=== PATIENT | male | born 1970 | race Caucasian/White ===

== ENCOUNTER 2018-09-11 17:24 | Inpatient (IN) | payer OTHER, SELFPAY ==
[~2018-09-11 17:24] MED LIST: ISOVUE-370 76%-LOCM 1 ML ONE; Iopamidol 370 76% 50 ML VIAL FS ONE
[2018-09-11 18:50] LABS: #Basophils 0.1 thou/uL (0.0-0.2); #Eosinphils 0.2 thou/uL (0.0-0.7); #Lymphocytes 2.3 thou/uL (1.20-3.40); #Monocytes 0.6 thou/uL (0.11-0.59); #Neutrophils 7.9 thou/uL (1.40-6.50); %Basophils 0.8 % (0.0-1.0); %Eosinophils 1.6 % (0.0-10.0); %Lymphocytes 20.6 % (21.0-51.0); %Monocytes 5.6 % (0.0-10.0); %Neutrophils 71.4 % (42.0-75.0); Hemoglobin 15.8 g/dL (14.0-18.0); Mean Corpuscular HGB CONC 32.6 g/dL (32.0-36.0); Mean Corpuscular Hemoglobin 29.4 pg (27.0-31.0); Mean Corpuscular Volume 90.1 fL (78.0-98.0); Mean Platelet Volume 6.8 fL (7.4-10.4); Platelet Count 352 thou/uL (130-400); RBC Distribution Width 11.9 % (11.5-14.5)
[2018-09-11 19:26] LABS: ALT (SGPT) 15 U/L (8-55); AST (SGOT) 13 U/L (5-34); Albumin 4.3 g/dL (3.5-5.0); Alkaline Phosphatase 69 U/L (40-150); Anion Gap 12 mmol/L (10-20); BUN (Urea Nitrogen) 19 mg/dL (8.9-20.6); Bilirubin, Total 0.6 mg/dL (0.2-1.2); Calc. Creatinine Clearance 0 mL/min (70-130); Calcium 9.8 mg/dL (7.8-10.44); Carbon Dioxide 27 mmol/L (22-29); Chloride 106 mmol/L (98-107); Estimated GFR-MDRD Greater than 90; Globulin 2.7 g/dL (2.4-3.5); Glucose 90 mg/dL (70-105); Sodium 141 mmol/L (136-145)
[2018-09-11 20:42] LABS: Bilirubin Negative (Negative); Blood, Urine Small (Negative); Glucose, Urine (Dipstick) Negative (Negative); Leukocyte Moderate (Negative); Nitrite Positive (Negative); Protein, Urine (Dipstick) 30 mg/dL (Neg-Trace); Urobilinogen 0.2 mg/dL (Less than 2)
[2018-09-11 20:46] LABS: Clarity Cloudy (Clear)
[2018-09-11 20:57] LABS: Bacteria/HPF 4+ HPF (None Seen); Squamous Epithelial 0-3 HPF (0-3); WBC/HPF Greater Than 50 HPF (0-3)
--- NOTE | 2018-09-11 22:08 | CT ---
EXAM: CT Abdomen Pelvis W Con PROVIDED CLINICAL HISTORY: Abdominal pain COMPARISON: None FINDINGS: Visualized lung bases are free of significant opacity. Exophytic right renal cysts and hypodensities too small to characterize involving left kidney. Multip le 1-2 mm nonobstructing right renal calculi. The solid abdominal organs demonstrate an otherwise unremarkable CT appearance. There is a small midline ventral hernia at about the level of the caudal margin of the right liver. There is prominent mural thickening involving the sigmoid colon. This mural thickening closely approx imates the urinary bladder dome which also appears thickened. There is a focal area of gas density extending from the sigmoid colon in this region to the urinary bladder. Gas is noted within the urina ry bladder. There is a large left inguinal hernia containing the distal descending and proximal sigmoid colon. Th ere is also fluid density within the hernia sac. There is no evidence for bowel obstruction or pneumoperitoneum. There is no evidence for appendicitis . The osseous structures demonstrate no concerning lytic or blastic lesions. IMPRESSION: 1. Conspicuous mural thickening involving the sigmoid colon compatible with inflammatory change such as diverticulitis or colitis, with associated colovesical fistula. 2. Large colon containing left inguinal hernia with associated fluid density within the hernia sac. C orrelate for incarceration. 3. Nonobstructing right renal calculi.
[2018-09-11] MEDS ORDERED: Levofloxacin 500 mg/D5W 100 ml Premix Bag ONE ×2 (22:44→22:48)
[2018-09-11] MEDS ORDERED: metroNIDAZOLE 500 MG/100 ML BAG ONE (22:44)
[2018-09-11] MEDS ORDERED: Ondansetron PF 4 MG/2 ML Vial IVP PRN (23:19)
--- NOTE | 2018-09-11 23:19 | PDOC.FPRHP ---
- History of Present Illness Chief Complaint: abdominal pain History of Present Illness: Patient is a 48 yo male presenting with a 2 month history of lower abdominal pain. He states that the pain occurs the most after eating and when he is moving around. He describes the pain as throbbing, aching, and a sharp pain in his pelvis near his penis. He has tried IBP and tylenol for the pain and states that these don't work. He also states that he has been nauseous and vomiting almost every morning after he wakes up. He denies any hematemesis. He reports that lately his stool has been "broken and thin" but denies hematochezia or melena. He also states that his stool often has mucus in it and is greasy in appearance. He endorses often feeling pain with wiping after defecation. He also complains of seeing bubbles in his urine, with a sensation of "gargling toward the end" of urination. He denies hematuria or dysuria. He has been seen at [facility] for these complaints, for which they recommended that he get his L inguinal hernia repaired. ED Course: Patient was evaluated and had a CT of the abdomen/pelvis. The CT was concerning for: 1. Conspicuous mural thickening involving the sigmoid colon compatible with inflammatory change such as diverticulitis or colitis, with associated colovesical fistula. 2. Large colon containing left inguinal hernia with associated fluid density within the hernia sac. C orrelate for incarceration. 3. Nonobstructing right renal calculi. A UA showed moderate leukocytes, positive nitrites, and a small amount of blood. CBC was remarkable for WBC of 11.0 with elevated neutrophils and monocytes. CMP was unremarkable. Patient was started on 500mg IV Flagyl and 500mg IV Levaquin Patient was admitted for primary diagnosis of diverticulitis complicated by colovesicular fistula. - Allergies/Adverse Reactions Allergies Allergy/AdvReac Type Severity Reaction Status Date / Time No Known Drug Allergies Allergy Verified 09/12/18 01:54 - History PMHx: R & L inguinal hernia, R hernia repaired Diverticulitis Colitis Anxiety/Depression for which he used to take Seroquel & Buspar. PSHx: R hernia repair FHx: none Social: ETOH: occasional Drugs: Current Marijuana use, past cocaine addiction 10 years ago, denies current use Smoking: Current smoker, 1ppd - Review of Systems General: reports: weight/appetite/sleep changes (Decreased eating because it causes him pain) Eyes: denies: vision changes ENT: reports: rhinorrhea Respiratory: reports: cough (mild). denies: shortness of breath Cardiovascular: denies: chest pain, palpitation Gastrointestinal: reports: nausea, vomiting, diarrhea ("broken and thin" stools) , abdominal pain (lower abdomen). denies: constipation Genitourinary: denies: incontinence, dysuria Skin: denies: rashes Musculoskeletal: denies: pain - Vital signs BP: [130/84] HR: [80] RR: [16] Tmax: [98.1] Pox: [98]% on [RA] Wt: [81.65kg] - Physical Exam Constitutional: NAD, awake, alert and oriented, well developed HEENT: normocephalic and atraumatic, PERRLA, EOMI Chest: no-tender to palpation Heart: RRR, normal S1/S2, no murmurs/rubs/gallops, pulses present, no edema Lungs: CTAB, no respiratory distress, good air movement, no rales/rhonchi, no wheezing, no retractions Abdomen: soft, bowel sounds present, no masses/distention, other (tender to palpation in lower quadrants, small umbilical hernia) Musculoskeletal: normal structure Neurological: no focal deficit Skin: no rash/lesions Psychiatric: normal mood and affect Additional comment: Reducable, non-strangulated, L inguinal hernia FMR H&P: Results - Labs Result Diagrams: 09/12/18 04:27 09/12/18 04:27 Lab results: WBC 11.0 thou/uL (4.8-10.8) H 09/11/18 18:37 Hgb 15.8 g/dL (14.0-18.0) 09/11/18 18:37 Hct 48.6 % (42.0-52.0) 09/11/18 18:37 MCV 90.1 fL (78.0-98.0) 09/11/18 18:37 Plt Count 352 thou/uL (130-400) 09/11/18 18:37 Neutrophils % 71.4 % (42.0-75.0) 09/11/18 18:37 Sodium 141 mmol/L (136-145) 09/11/18 18:37 Potassium 4.0 mmol/L (3.5-5.1) 09/11/18 18:37 Chloride 106 mmol/L (98-107) 09/11/18 18:37 Carbon Dioxide 27 mmol/L (22-29) 09/11/18 18:37 BUN 19 mg/dL (8.9-20.6) 09/11/18 18:37 Creatinine 0.83 mg/dL (0.7-1.3) 09/11/18 18:37 Glucose 90 mg/dL (70-105) 09/11/18 18:37 Calcium 9.8 mg/dL (7.8-10.44) 09/11/18 18:37 Total Bilirubin 0.6 mg/dL (0.2-1.2) 09/11/18 18:37 AST 13 U/L (5-34) 09/11/18 18:37 ALT 15 U/L (8-55) 09/11/18 18:37 Alkaline Phosphatase 69 U/L (40-150) 09/11/18 18:37 Serum Total Protein 7.0 g/dL (6.0-8.3) 09/11/18 18:37 Albumin 4.3 g/dL (3.5-5.0) 09/11/18 18:37 Urine Ketones Negative mg/dL (Negative) 09/11/18 20:25 Urine Blood Small (Negative) A 09/11/18 20:25 Urine Nitrite Positive (Negative) A 09/11/18 20:25 Ur Leukocyte Esterase Moderate (Negative) H 09/11/18 20:25 Urine RBC 7-10 HPF (0-3) A 09/11/18 20:25 Urine WBC Greater Than 50 HPF (0-3) A 09/11/18 20:25 Ur Squamous Epith Cells 0-3 HPF (0-3) 09/11/18 20:25 Urine Bacteria 4+ HPF (None Seen) A 09/11/18 20:25 - Radiology Interpretation CT scan - abdomen Status: report reviewed by me (1. Conspicuous mural thickening involving the sigmoid colon compatible with inflammatory change such as diverticulitis or colitis, with associated colovesical fistula. 2. Large colon containing left inguinal hernia with associated fluid density within the hernia sac. Correlate for incarceration. 3. Nonobstructing right renal calculi.) FMR H&P: A/P - Problem List (1) Diverticulitis large intestine Current Visit: Yes Status: Acute Code(s): K57.32 - DVTRCLI OF LG INT W/O PERFORATION OR ABSCESS W/O BLEEDING (2) Colovesical fistula Current Visit: Yes Status: Acute Code(s): N32.1 - VESICOINTESTINAL FISTULA (3) UTI (urinary tract infection) Current Visit: Yes Status: Acute (4) Leukocytosis Current Visit: Yes Status: Acute Code(s): D72.829 - ELEVATED WHITE BLOOD CELL COUNT, UNSPECIFIED (5) Left inguinal hernia Current Visit: Yes Status: Acute Code(s): K40.90 - UNIL INGUINAL HERNIA, W/ O OBST OR GANGR, NOT SPCF RECUR (6) Drug abuse Current Visit: Yes Status: Acute Code(s): F19.10 - OTHER PSYCHOACTIVE SUBSTANCE ABUSE, UNCOMPLICATED - Plan Diverticulitis vs colitis -CT abdomen demonstrated conspicuous mural thickening involving the sigmoid colon compatible with inflammatory change such as diverticulitis vs colitis -patient started on IV flagyl and IV levaquin in ED, continue -NPO -IVF -Pain control: IV morphine PRN -Consult GI -FOBT -Stool studies -ESR Colovesical fistula -CT abdomen demonstrated colovesical fistula -patient reports of air coming out of penis during urination, denies dysuria or hematuria -Consult surgery in AM, appreciate recs -Consult urology pending recs by sx UTI -UA showed leukocytes, nitrites, small blood -Already started flagyl and levaquin in ED, continue -Urine culture pending Leukocytosis -WBC 11.0 -Likely 2/2 diverticulitis, colovesical fistula, and UTI -On abx -Blood cx -0/4 SIRS criteria -Will monitor L inguinal hernia -CT pelvis demonstrated large colon containing left inguinal hernia with associated fluid density within the hernia sac -Hernia is reducible, non-strangulated, and non-tender to palpation on physical exam -Consult surgery Drug Abuse -UDS positive for THC, methamphetamine, amphetamine -will monitor for signs of withdrawal Fluids: NS 150ml/hr Code status: full PPx: SCD Disposition/LOS: Dispo: pending surgery evaluation in am FMR H&P: Upper Level - Plan Date/Time: 09/11/18 2313 HPI: This is a 48 yo M who comes in for pain he attributes to his hernia. He gets a sharp pain in his groin when he moves in certain positions at work which led him to come into the ED tonight. He had a hernia repair on the R previously and he said the pain is similar. At time of exam he states his pain is minimal but were he to get up and walk around his pain would be worse. Patient also has a separate abdominal pain described as a throbbing in the LUQ and LLQ which is worse with eating. He states he has had multiple bouts of diarrhea which come and go in the past but never bloody. He states his BMs are often full of mucous and are sometimes stringy or decreased in caliber. He denies fevers, chills, or sweats. He denies N/V. Patient states he has had many bouts of diverticulitis. He states that for the last 2 days he has noticed gas in his urine. Towards the end of finishing urinating he notices bubbles coming out. This was concerning to him but not his main reason for coming in. He denies burning or blood with urination although he was told he had microscopic hematuria at a recent visit to [facility] ED. REVIEW OF SYSTEMS: Gen: no fever, chills, or sweats Neuro: no numbness/tingling, no weakness, denies headache Eyes: no visual changes ENT: no hearing changes, no sore throat, + nasal congestion Resp: no cough, no SOB, no wheeze Card: denies chest pain, no palpitations GI: see hpi : no dysuria, no hematuria MSK: no myalgias, no joint pain/stiffness Heme: no easy bruising/bleeding, no blood thinners Skin: no rash, no erythema PHYSICAL EXAMINATION: General: NAD, alert and oriented x3 HEENT: PERRLA, EOMI, normal sclera, oropharynx without erythema or exudate Neck: Supple. Full ROM. Heart/Cardiovascular System: RRR, Cap refill < 3 seconds, no rub, no murmur Lungs/Respiratory System: clear to auscultation bilaterally. No increased work of breathing. Room air. Abdomen/Gastro-Intestinal System: large non-reducible inguinal hernia, non- tender to palpation, no redness or erythema, no warmth to touch, umbilical hernia noted, normal bowel sounds throught, soft non-tender throughout Extremities: Warm extremities. No cyanosis or edema. Neuro: No gross deficits appreciated. CN 2-12 grossly intact Psychiatry: Awake, Alert and cooperative with exam Skin: No lesions, rashes, or ulcers Musculoskeletal: Full ROM A/P: # Colitis - levofloxacin, flagyl, blood culture - ESR 8, WBC 11, FOBT negative, fecal lactoferrin pending # Colovesical fistula, inguinal hernia - consult surgery in AM, may ultimately need urological consult as well - Will need repair of hernia, fistula -- this is likely 2/2 diverticulitis but IBD is a consideration - morphine for pain control # Drug abuse - stated he had not used cocaine for 5-10 years - + THC and Amphetamines # UTI - 2/2 fistula, as above - ucx Fluids: NS 150ml/hr Code status: full PPx: SCD Dispo: pending surgical eval Addendum - Attending - Attending Attestation Date/Time: 09/12/18 1044 I personally evaluated the patient and discussed the management with Dr. Choi and team. I agree with the History, Examination, Assessment and Plan documented above with any addition or exceptions noted below. Colovesical fistula in setting of diverticulitis/osis with large left inguinal hernia -antibiotics -GS consultation in AM
[2018-09-11] MEDS ORDERED: Morphine 4 MG/ML VIAL SLOW IVP PRN (23:24)
[2018-09-11 23:54] LABS: Amphetamine Detected (NotDetected); Barbiturates Screen Not Detected (NotDetected); Benzodiazepine Screen Not Detected (NotDetected); Cocaine Metabolite Screen Not Detected (NotDetected); Medtox Control Line Valid? VALID (VALID); Medtox Reader # READER 4; Methadone Not Detected (NotDetected); Methamphetamine Detected (NotDetected); Opiate Screen Not Detected (NotDetected); Oxycodone Screen Not Detected (NotDetected); Phencyclidine (PCP) Not Detected (NotDetected); THC/Cannabinoid Screen Detected (NotDetected); Tricyclic Screen Not Detected (NotDetected)
[2018-09-12] MEDS: Sodium Chloride 0.9% 1,000 ML IV SCH ×2 (02:00→08:20)
[2018-09-12 02:28] VITALS: BMI 25.8
[2018-09-12 04:55] LABS: #Basophils 0.1 thou/uL (0.0-0.2); #Eosinphils 0.2 thou/uL (0.0-0.7); #Lymphocytes 2.8 thou/uL (1.20-3.40); #Monocytes 0.8 thou/uL (0.11-0.59); #Neutrophils 4.8 thou/uL (1.40-6.50); %Basophils 0.8 % (0.0-1.0); %Eosinophils 2.9 % (0.0-10.0); %Lymphocytes 32.6 % (21.0-51.0); %Monocytes 8.8 % (0.0-10.0); Hemoglobin 13.7 g/dL (14.0-18.0); Mean Corpuscular Hemoglobin 29.7 pg (27.0-31.0); Mean Corpuscular Volume 90.1 fL (78.0-98.0); Platelet Count 294 thou/uL (130-400); RBC Distribution Width 11.8 % (11.5-14.5); White Blood Cell (WBC) Count 8.7 thou/uL (4.8-10.8)
[2018-09-12 05:20] LABS: ALT (SGPT) 9 U/L (8-55); AST (SGOT) 9 U/L (5-34); Albumin 3.5 g/dL (3.5-5.0); Alkaline Phosphatase 55 U/L (40-150); Anion Gap 6 mmol/L (10-20); BUN (Urea Nitrogen) 12 mg/dL (8.9-20.6); Bilirubin, Total 0.5 mg/dL (0.2-1.2); Calc. Creatinine Clearance 130 mL/min (70-130); Calcium 8.8 mg/dL (7.8-10.44); Carbon Dioxide 28 mmol/L (22-29); Chloride 108 mmol/L (98-107); Estimated GFR-MDRD Greater than 90; Globulin 2.2 g/dL (2.4-3.5); Glucose 88 mg/dL (70-105); Potassium 3.3 mmol/L (3.5-5.1); Protein, Total 5.7 g/dL (6.0-8.3); Sodium 139 mmol/L (136-145)
[2018-09-12] MEDS ORDERED: metroNIDAZOLE 500 MG in Premix Bag 1 BAG IVPB SCH (06:00)
--- NOTE | 2018-09-12 07:39 | PDOC.FM ---
- Subjective Subjective: Pt reports improved abdominal pain overnight. He states the pain is worse with standing and large meals. He denies chest pain, SOB, or headaches. - Objective MAR Reviewed: Yes Vital Signs & Weight: Vital Signs (12 hours) Temp Pulse Resp BP Pulse Ox 09/12/18 03:58 98.2 F 60 20 139/71 96 09/12/18 02:00 98 09/12/18 01:47 98.2 F 60 18 146/80 H 98 Weight Weight 81.647 kg Result Diagrams: 09/12/18 04:27 09/12/18 04:27 Phys Exam - Physical Examination Constitutional: NAD HEENT: moist MMs Neck: no JVD, full ROM Respiratory: no wheezing, clear to auscultation bilateral Cardiovascular: RRR, no significant murmur Gastrointestinal: soft, no distention, positive bowel sounds Tenderness over the LLQ Musculoskeletal: no edema, pulses present Neurological: moves all 4 limbs Psychiatric: normal affect, A&O x 3 Skin: cap refill <2 seconds Dx/Plan (1) Colovesical fistula Code(s): N32.1 - VESICOINTESTINAL FISTULA Status: Acute (2) Diverticulitis large intestine Code(s): K57.32 - DVTRCLI OF LG INT W/O PERFORATION OR ABSCESS W/O BLEEDING Status: Acute (3) Drug abuse Code(s): F19.10 - OTHER PSYCHOACTIVE SUBSTANCE ABUSE, UNCOMPLICATED Status: Acute (4) Left inguinal hernia Code(s): K40.90 - UNIL INGUINAL HERNIA, W/O OBST OR GANGR, NOT SPCF RECUR Status: Acute (5) Leukocytosis Code(s): D72.829 - ELEVATED WHITE BLOOD CELL COUNT, UNSPECIFIED Status: Acute (6) UTI (urinary tract infection) Status: Acute - Plan Plan: THis is a 48 yo male with a pmh of drug abuse, diverticulitis, and left inguinal hernia Diverticulitis vs colitis -CT shows inflammation consistent with colitis with fistula into bladder -On levaquin and metronidazole -IV morphine for pain control -NPO, likely transition to full liquids -FOBT negative -Plan to work towards improved pain and normal PO intake then have pt follow up outpt with general surgery -Will transition to PO abx Colovesical fistual -Seen on CT and consistent with history -Briefly discussed case with general surgery this AM and they recommend outpt management -Consult case management for ride to hospital for outpt surgery UTI, POA, presumptive E. coli 2/2 above -Currently on levaquin and metronidazole -Pending urine culture Leukocytosis, resolved Multidrug abuse -UDS positive f or THC, methamphetamine, and amphetamine Hypokalemia -3.3 this AM, replacing Addendum - Attending - Attending Attestation Date/Time: 09/12/18 5489 I personally evaluated the patient and discussed the management with Dr. Raymundo I agree with the History, Examination, Assessment and Plan documented above with any addition or exceptions noted below. 48 yo with prior ER visit several months ago with outpatient treatment diverticulitis. Patient with colovesicular fistula and diverticulitis will transition to po antibiotic and advance diet as tolerated . Patient counseled at length importance outpatient general surgery f/u and strangulation precautions regard left inguinal hernia. Patient s/p RIH repair with mesh. Patient with non toxic appearance care plan discussed at length with patient.
[2018-09-12] MEDS: Potassium Chloride 20 MEQ/100 ML PREMIX BAG IVPB SCH ×3 (10:40→11:53)
[2018-09-12 11:34] VITALS: BP 132/78; TEMP 98.2
[2018-09-12] MEDS ORDERED: Potassium Chloride 20 MEQ TAB PO SCH (12:15)
[2018-09-12 14:43] LABS: Anion Gap 8 mmol/L (10-20); BUN (Urea Nitrogen) 10 mg/dL (8.9-20.6); Calc. Creatinine Clearance 142 mL/min (70-130); Calcium 8.8 mg/dL (7.8-10.44); Carbon Dioxide 26 mmol/L (22-29); Chloride 110 mmol/L (98-107); Estimated GFR-MDRD Greater than 90; Glucose 108 mg/dL (70-105); Potassium 3.8 mmol/L (3.5-5.1); Sodium 140 mmol/L (136-145)
[2018-09-12] MEDS ORDERED: metroNIDAZOLE 500 MG TAB PO SCH (15:00)
--- NOTE | 2018-09-13 01:28 | DIS ---
DATE OF ADMISSION: 09/12/2018 DATE OF DISCHARGE: 09/12/2018 ADMITTING ATTENDING: Elvis Domingo MD DISCHARGING ATTENDING: Thaddeus Connolly MD RESIDENT: Michael Raymundo DO CONSULTS: None. PROCEDURES: CT abdomen and pelvis with contrast showing conspicuous mural thickening involving the sigmoid colon compatible with inflammatory changes such as diverticulitis or colitis associated with colovesical fistula, large colon containing left inguinal hernia with associated fluid density within the hernia sac, nonobstructing right renal calculi. PRIMARY DIAGNOSES: 1. Colovesical fistula, left inguinal hernia with colon involvement. 2. Colitis, likely representing infectious versus venous obstruction secondary to hernia. 3. Urinary tract infection. SECONDARY DIAGNOSIS: Methamphetamine/drug abuse. DISCHARGE MEDICATIONS: Levaquin 750 mg p.o. daily and metronidazole 500 mg p.o. t.i.d., both for 12 days. BRIEF HISTORY OF PRESENT ILLNESS/HOSPITAL COURSE: This is a 48-year-old male with past medical history as above, presented with 2-month history of lower abdominal pain. States the pain was primarily after eating or moving around. He states the pain is coming from his inguinal hernia on the left. He denies any exquisite pain, also reports suprapubic as well as dysuria. The patient reports he tried ibuprofen, Tylenol with no relief. The patient then reports seen bubbles in his urine and gurgling sound. In the ER, the patient received the CT as above, which showed colovesical fistula, admitted to the hospital for concern for infectious diverticulitis versus colitis. The patient received Levaquin and metronidazole in the ER IV as well as fluid resuscitation. The patient remained stable from the time of presentation in the ED until the time of discharge. The patient initially had leukocytosis of 11.7, which trended down by the time of discharge. I discussed this case with General Surgery who determined this case was fit for outpatient. The patient's pain improved throughout the day with IV antibiotics and hydration. The patient tolerated full liquid diet with no concerns. At the time of discharge, the patient was educated on a high-fiber diet as well as ER precautions and return symptoms of incarcerated inguinal hernia, including pain, fever, chills, and constipation. The patient has an appointment with General Surgery on the 19 of September at 0830 in the morning. The patient states that he can get a ride there. DISPOSITION: Stable. DISCHARGE INSTRUCTIONS: 1. Location: Home. 2. Diet: High fiber. 3. Activity: As tolerated. 4. Followup: Follow up with [facility] in [place] with General Surgery on 09/19/2018, at 0830 in the morning. Job ID: [id number]
== END 2018-09-12 16:48 | disposition home or self-care (01) | DRG 699 ==
LOC: ERS 17:24 → OBSVTOIN 09-12 01:41 → T4-B 09-12 01:41
PROVIDERS: ADMIT Emergency Medicine; ATTEND Emergency Medicine
DX: N32.1 Vesicointestinal fistula (principal); K63.2 Fistula of intestine; K57.32 Diverticulitis of large intestine without perforation or abscess without bleeding; N39.0 Urinary tract infection, site not specified; A09 Infectious gastroenteritis and colitis, unspecified; K40.90 Unilateral inguinal hernia, without obstruction or gangrene, not specified as recurrent; N20.0 Calculus of kidney; F41.9 Anxiety disorder, unspecified; F32.9 Major depressive disorder, single episode, unspecified; F17.210 Nicotine dependence, cigarettes, uncomplicated; D72.829 Elevated white blood cell count, unspecified; K52.89 Other specified noninfective gastroenteritis and colitis
CPT/HCPCS: 36415; 74177; 80053; 80306; 81003; 81015; 82274; 85025; 85652; 86140; 87040; 87077; 87086; 87186; J1956; J3480; Q9966; Q9967

== ENCOUNTER 2019-12-09 14:57 | Emergency (ER) | payer SELFPAY ==
[~2019-12-09 14:57] MED LIST changes: -ISOVUE-370 76%-LOCM 1 ML ONE; -Iopamidol 370 76% 50 ML VIAL FS ONE; +Iopamidol-370 76% 500 ML 1 ML ONE
[2019-12-09] MEDS ORDERED: Ondansetron PF 4 MG/2 ML Vial ONE (15:19)
[2019-12-09] MEDS ORDERED: Morphine 4 MG/ML VIAL ONE (15:19)
[2019-12-09 15:47] LABS: #Basophils 0.1 thou/uL (0.0-0.2); #Eosinphils 0.3 thou/uL (0.0-0.7); #Lymphocytes 1.7 thou/uL (1.20-3.40); #Monocytes 0.4 thou/uL (0.11-0.59); #Neutrophils 3.4 thou/uL (1.40-6.50); %Basophils 1.1 % (0.0-1.0); %Eosinophils 4.9 % (0.0-10.0); %Lymphocytes 29.6 % (21.0-51.0); %Neutrophils 57.4 % (42.0-75.0); Hemoglobin 15.6 g/dL (14.0-18.0); Mean Corpuscular HGB CONC 35.2 g/dL (32.0-36.0); Mean Corpuscular Hemoglobin 31.3 pg (27.0-31.0); Mean Platelet Volume 6.7 fL (7.4-10.4); Platelet Count 312 thou/uL (130-400); RBC Distribution Width 11.6 % (11.5-14.5); Red Blood Cell (RBC) Count 4.97 mill/uL (4.70-6.10); White Blood Cell (WBC) Count 5.8 thou/uL (4.8-10.8)
[2019-12-09 16:12] LABS: ALT (SGPT) 28 U/L (8-55); AST (SGOT) 18 U/L (5-34); Albumin 4.3 g/dL (3.5-5.0); Alkaline Phosphatase 67 U/L (40-110); Anion Gap 11 mmol/L (10-20); BUN (Urea Nitrogen) 15 mg/dL (8.9-20.6); Bilirubin, Total 0.2 mg/dL (0.2-1.2); Calc. Creatinine Clearance 0 mL/min (70-130); Calcium 8.5 mg/dL (7.8-10.44); Carbon Dioxide 26 mmol/L (22-29); Chloride 107 mmol/L (98-107); Estimated GFR-MDRD 86; Globulin 2.8 g/dL (2.4-3.5); Glucose 95 mg/dL (70-105); Lipase 24 U/L (8-78); Potassium 3.9 mmol/L (3.5-5.1); Protein, Total 7.1 g/dL (6.0-8.3); Sodium 140 mmol/L (136-145)
--- NOTE | 2019-12-09 16:29 | CT ---
CT Abdomen Pelvis W Con History: Abdominal pain Comparison: CT abdomen and pelvis August 2018 Findings: Lung bases are clear. No pericardial effusion. Liver, spleen, pancreas are unremarkable. Sm all nodule right adrenal gland lateral limb is similar measuring up to 1.2 cm. Aortic contour is nonaneurysmal. Sigmoid colon containing left indirect inguinal hernia extending out of field of view into the scrotal sac with fluid within the hernia sac. High-grade thickening of the sigmoid colon. Abnormal thickening of the left lateral wall urinary bladder with air within the b ladder suggesting a fistula which is suggested on coronal image 71, axial image 74. No acute osseous abnormality. No retroperitoneal periaortic adenopathy. No hydronephrosis. Impression: 1. Large sigmoid interval left indirect inguinal hernia with small volume fluid in hernia sac. No champ dence for bowel obstruction. 2. Small fat-containing umbilical hernia. 3. Chronic sigmoid colon/urinary bladder fistula. 4. Similar appearance small nodule lateral limb right adrenal gland. 5. Similar appearance of the cystic mass inferior pole right kidney measuring up to 3.3 cm. Follow-up ultrasound in 6 months recommended.
== END 2019-12-09 16:53 | disposition home or self-care (01) ==
LOC: ERS 14:57
DX: K40.90 Unilateral inguinal hernia, without obstruction or gangrene, not specified as recurrent (principal); I10 Essential (primary) hypertension; F41.9 Anxiety disorder, unspecified; F31.9 Bipolar disorder, unspecified; F17.210 Nicotine dependence, cigarettes, uncomplicated; Z79.899 Other long term (current) drug therapy
CPT/HCPCS: 74177; 80053; 83605; 83690; 85025; 93005; 94760; 96374; 96375; J2270; J2405; Q9967

== ENCOUNTER 2020-01-18 08:24 | Emergency (ER) | payer SELFPAY ==
[2020-01-18 09:06] LABS: Bilirubin Negative (Negative); Blood, Urine Large (Negative); Glucose, Urine (Dipstick) Negative (Negative); Ketone, Urine Negative (Negative); Leukocyte Small (Negative); Nitrite Negative (Negative); Protein, Urine (Dipstick) 100 mg/dL (Neg-Trace); Urobilinogen 0.2 mg/dL (Less than 2)
[2020-01-18 09:08] LABS: #Eosinphils 1.5 thou/uL (0.0-0.7); #Lymphocytes 2.3 thou/uL (1.20-3.40); #Monocytes 0.9 thou/uL (0.11-0.59); %Basophils 0.2 % (0.0-1.0); %Eosinophils 12.1 % (0.0-10.0); %Neutrophils 62.7 % (42.0-75.0); Hemoglobin 15.8 g/dL (14.0-18.0); Mean Corpuscular HGB CONC 33.3 g/dL (32.0-36.0); Mean Corpuscular Hemoglobin 29.4 pg (27.0-31.0); Mean Corpuscular Volume 88.5 fL (78.0-98.0); Mean Platelet Volume 6.8 fL (7.4-10.4); Platelet Count 299 thou/uL (130-400); RBC Distribution Width 11.5 % (11.5-14.5); Red Blood Cell (RBC) Count 5.38 mill/uL (4.70-6.10); White Blood Cell (WBC) Count 12.7 thou/uL (4.8-10.8)
[2020-01-18 09:13] LABS: Clarity Cloudy (Clear); Specific Gravity, Urine 1.026 (1.002-1.036)
[2020-01-18 09:22] LABS: ALT (SGPT) 8 U/L (8-55); AST (SGOT) 10 U/L (5-34); Albumin 4.2 g/dL (3.5-5.0); Alkaline Phosphatase 87 U/L (40-110); Anion Gap 15 mmol/L (10-20); BUN (Urea Nitrogen) 20 mg/dL (8.9-20.6); Bilirubin, Total 0.2 mg/dL (0.2-1.2); Calc. Creatinine Clearance 0 mL/min (70-130); Calcium 9.3 mg/dL (7.8-10.44); Carbon Dioxide 25 mmol/L (22-29); Chloride 105 mmol/L (98-107); Estimated GFR-MDRD 64; Globulin 2.9 g/dL (2.4-3.5); Glucose 104 mg/dL (70-105); Potassium 3.9 mmol/L (3.5-5.1); Protein, Total 7.1 g/dL (6.0-8.3); Sodium 141 mmol/L (136-145)
[2020-01-18] MEDS ORDERED: Ondansetron PF 4 MG/2 ML Vial ONE (09:24)
--- NOTE | 2020-01-18 12:05 | CT ---
EXAM: CT ABDOMEN AND PELVIS HISTORY: Patient is urinating cc COMPARISON: 12/09/2019 Procedure: Multiple contiguous axial images were obtained and a CT of the abdomen and pelvis with IV contrast. C oronal reformats were performed. FINDINGS: Lower Chest: within normal limits. Vessels: Normal caliber aorta. No periaortic fat stranding Heart: Normal heart size Abdomen: Portal vein:Patent Gallbladder: No calcified gallstones. Normal caliber wall. Liver: within normal limits. Pancreas: within normal limits. Spleen: within normal limits. Adrenals: within normal limits. Kidneys: Stable bilateral adrenal nodules, incompletely evaluated. Peritoneum: No ascites or free air, no fluid collection. Bowel: Gastric mucosa, duodenum and multiple normal caliber small bowel loops. Normal caliber appendi x. Redemonstration of a left inguinal hernia containing a segment of descending colon and sigmoid colon extending through the defect. There is bowel wall thickening involving the expected region of t he sigmoid colon. No evidence of extraluminal air or bowel perforation. Discontinue the adjacent mesentery likely representing a low-grade infection. There does appear to be a small connection of th e sigmoid colon and the adjacent bladder (axial image 31, series 4; coronal image 79, series 601). Mesentery and Retroperitoneum: No enlarged mesenteric or retroperitoneal lymph nodes. Abdominal Wall: Redemonstration of a left inguinal hernia containing a segment colon and mesentery th rough the defect. No evidence of bowel incarceration. Pelvis: Reproductive Organs: Reproductive organs are unremarkable. Pelvis: No mass, lymphadenopathy, free air or free fluid. Bladder: Redemonstration of mucosal thickening of the left aspect of the urinary bladder. Small foci of air in the nondependent portion of the bladder. Bones: within normal limits. IMPRESSION: 1. Redemonstration of a left inguinal hernia containing a large segment of colon and mesentery throug h the defect. No bowel herniation. 2. Mucosal thickening involving the expected region of sigmoid colon with visualized connection with the adjacent bladder. There is mucosal thickening in bladder wall thickening on the left aspect of the bladder. Small focus of air in the nondependent portion the bladder is noted. Consider general baig rgical and urology consultation. 3. Incompletely evaluated bilateral adrenal nodules
[2020-01-18] MEDS ORDERED: Iopamidol-370 76% 500 ML 1 ML ONE (15:09)
== END 2020-01-18 13:02 | disposition home or self-care (01) ==
LOC: ERS 08:24
DX: K63.2 Fistula of intestine (principal); K52.89 Other specified noninfective gastroenteritis and colitis; F31.9 Bipolar disorder, unspecified; F41.9 Anxiety disorder, unspecified; F43.10 Post-traumatic stress disorder, unspecified; F17.210 Nicotine dependence, cigarettes, uncomplicated; Z79.899 Other long term (current) drug therapy
CPT/HCPCS: 74177; 80053; 81003; 81015; 85025; 87077; 87086; 87186; 93005; 96374; J2405; Q9967

== ENCOUNTER 2020-03-04 11:28 | Emergency (ER) | payer SELFPAY ==
[2020-03-04] MEDS ORDERED: Boostrix 0.5 ML (Tdap) VIAL ONE (12:45)
== END 2020-03-04 13:17 | disposition home or self-care (01) ==
LOC: ERS 11:28
DX: L01.03 Bullous impetigo (principal); L03.113 Cellulitis of right upper limb; L03.116 Cellulitis of left lower limb
CPT/HCPCS: 90471; 90715

== ENCOUNTER 2020-10-30 19:55 | Emergency (ER) | payer SELFPAY | END 2020-10-30 22:18 | disposition home or self-care (01) | LOC: ERS 19:55 | DX: K40.90 Unilateral inguinal hernia, without obstruction or gangrene, not specified as recurrent (principal); K42.9 Umbilical hernia without obstruction or gangrene; F17.210 Nicotine dependence, cigarettes, uncomplicated | CPT/HCPCS: 99283 ==

== ENCOUNTER 2021-03-09 10:52 | Emergency (ER) | payer SELFPAY ==
[2021-03-09 11:57] LABS: Hemoglobin 16.1 g/dL (14.0-18.0); Mean Corpuscular HGB CONC 35.2 g/dL (32.0-36.0); Mean Corpuscular Hemoglobin 31.6 pg (27.0-31.0); Mean Corpuscular Volume 89.9 fL (78.0-98.0); Mean Platelet Volume 6.9 fL (7.4-10.4); Platelet Count 163 thou/uL (130-400); RBC Distribution Width 11.5 % (11.5-14.5); Red Blood Cell (RBC) Count 5.09 mill/uL (4.70-6.10); White Blood Cell (WBC) Count 4.3 thou/uL (4.8-10.8)
[2021-03-09 12:18] LABS: ALT (SGPT) 24 U/L (8-55); AST (SGOT) 18 U/L (5-34); Alkaline Phosphatase 71 U/L (40-110); Anion Gap 12 mmol/L (10-20); BUN (Urea Nitrogen) 16 mg/dL (8.9-20.6); Bilirubin, Total 0.3 mg/dL (0.2-1.2); Calc. Creatinine Clearance 0 mL/min (70-130); Calcium 8.9 mg/dL (7.8-10.44); Carbon Dioxide 23 mmol/L (22-29); Chloride 106 mmol/L (98-107); Globulin 2.9 g/dL (2.4-3.5); Glucose 89 mg/dL (70-105); Potassium 3.5 mmol/L (3.5-5.1); Protein, Total 6.9 g/dL (6.0-8.3); Sodium 137 mmol/L (136-145)
[2021-03-09 12:23] LABS: Band 28 % (5-11); Lymphocytes 28 % (21-51); MDiff Complete? YES; Monocytes 8 % (0-10); Neutrophil 26 % (42-75); Platelet Morphology Comment Appears Adequate; RBC Morphology Normal; Reactive Lymphocytes 10 % (0-10)
[2021-03-09 13:17] LABS: Bilirubin Negative (Negative); Blood, Urine 3+ (Negative); Clarity Extra Turbid (Clear); Glucose, Urine (Dipstick) Normal (Negative); Ketone, Urine 10 mg/dL (Negative); Leukocyte 500 Leu/uL (Negative); Nitrite Negative (Negative); Protein, Urine (Dipstick) 100 mg/dL (Neg-Trace); RBC/HPF Greater than 50 HPF (0-3); Specific Gravity, Urine 1.032 (1.002-1.036); Squamous Epithelial 0-3 HPF (0-3); WBC/HPF Greater than 50 HPF (0-3); pH, Urine 5.5 (5.0-9.0)
[2021-03-09 13:30] LABS: Bacteria/HPF 1+ HPF (None Seen)
[2021-03-09] MEDS ORDERED: Acetaminophen 500 MG TAB ONE (14:22)
[2021-03-10 14:18] LABS: SARS-CoV-2 PCR by NAA DETECTED (NotDetected)
== END 2021-03-09 16:40 | disposition home or self-care (01) ==
LOC: ERS 10:52
DX: U07.1 COVID-19 (principal); N39.0 Urinary tract infection, site not specified; N32.1 Vesicointestinal fistula; K40.90 Unilateral inguinal hernia, without obstruction or gangrene, not specified as recurrent; F17.210 Nicotine dependence, cigarettes, uncomplicated; Z79.899 Other long term (current) drug therapy
CPT/HCPCS: 36415; 74177; 80053; 81003; 81015; 83605; 85025; 87040; 87077; 87086; 87186; U0003; U0005

== ENCOUNTER 2021-06-23 22:18 | Emergency (ER) | payer SELFPAY ==
[2021-06-23 23:43] LABS: Bacteria/HPF None Seen HPF (None Seen); Bilirubin Negative (Negative); Blood, Urine Negative (Negative); Clarity Turbid (Clear); Glucose, Urine (Dipstick) Normal (Negative); Ketone, Urine Negative (Negative); Leukocyte 500 Leu/uL (Negative); Nitrite Negative (Negative); Protein, Urine (Dipstick) 20 mg/dL (Neg-Trace); RBC/HPF 0-3 HPF (0-3); Specific Gravity, Urine 1.024 (1.002-1.036); Squamous Epithelial None Seen HPF (0-3); Urobilinogen Normal mg/dL (Less than 2); WBC/HPF Greater than 50 HPF (0-3); pH, Urine 5.5 (5.0-9.0)
[2021-06-24] MEDS ORDERED: cefTRIAXone\\ROCEPHIN 500 MG VIAL ONE (00:03)
[2021-06-24] MEDS ORDERED: Lidocaine 1% PF 5 ML VIAL ONE (00:03)
[2021-06-24 12:28] LABS: Chlam.trachomatis by PCR,Urine Not Detected (NotDetected)
== END 2021-06-24 00:20 | disposition home or self-care (01) ==
LOC: ERS 22:18
DX: N39.0 Urinary tract infection, site not specified (principal); A64 Unspecified sexually transmitted disease; I10 Essential (primary) hypertension; F17.210 Nicotine dependence, cigarettes, uncomplicated
CPT/HCPCS: 81003; 81015; 87086; 87491; 87591; 96372; 99283; J0696

== ENCOUNTER 2021-09-19 21:15 | Emergency (ER) | payer SELFPAY ==
[2021-09-19 23:25] LABS: Bacteria/HPF 2+ HPF (None Seen); Bilirubin Negative (Negative); Blood, Urine 2+ (Negative); Clarity Turbid (Clear); Glucose, Urine (Dipstick) Normal (Negative); Ketone, Urine Negative (Negative); Leukocyte 500 Leu/uL (Negative); Nitrite 1+ (Negative); Protein, Urine (Dipstick) 50 mg/dL (Neg-Trace); RBC/HPF Greater than 50 HPF (0-3); Specific Gravity, Urine 1.022 (1.002-1.036); Squamous Epithelial None Seen HPF (0-3); Urobilinogen Normal mg/dL (Less than 2); WBC/HPF Greater than 50 HPF (0-3); pH, Urine 7.5 (5.0-9.0)
== END 2021-09-20 00:36 | disposition home or self-care (01) ==
LOC: ERS 21:15
DX: N39.0 Urinary tract infection, site not specified (principal); N32.1 Vesicointestinal fistula; I10 Essential (primary) hypertension; F17.210 Nicotine dependence, cigarettes, uncomplicated; Z79.899 Other long term (current) drug therapy
CPT/HCPCS: 81003; 81015; 87077; 87086; 87186; 99283

== ENCOUNTER 2021-12-05 18:19 | Emergency (ER) | payer SELFPAY ==
[2021-12-05 19:03] LABS: #Eosinphils 0.1 thou/uL (0.0-0.7); #Lymphocytes 2.3 thou/uL (1.20-3.40); #Monocytes 0.4 thou/uL (0.11-0.59); #Neutrophils 2.7 thou/uL (1.40-6.50); %Basophils 0.6 % (0.0-1.0); %Eosinophils 1.6 % (0.0-10.0); %Lymphocytes 41.6 % (21.0-51.0); %Monocytes 7.2 % (0.0-10.0); Hemoglobin 15.3 g/dL (14.0-18.0); Mean Corpuscular HGB CONC 35.2 g/dL (32.0-36.0); Mean Corpuscular Hemoglobin 31.3 pg (27.0-31.0); Mean Corpuscular Volume 88.9 fL (78.0-98.0); Mean Platelet Volume 6.6 fL (7.4-10.4); Platelet Count 263 thou/uL (130-400); RBC Distribution Width 11.3 % (11.5-14.5); Red Blood Cell (RBC) Count 4.89 mill/uL (4.70-6.10); White Blood Cell (WBC) Count 5.5 thou/uL (4.8-10.8)
[2021-12-05 19:19] LABS: ALT (SGPT) 22 U/L (8-55); AST (SGOT) 15 U/L (5-34); Albumin 3.9 g/dL (3.5-5.0); Alkaline Phosphatase 81 U/L (40-110); Anion Gap 15 mmol/L (10-20); BUN (Urea Nitrogen) 10 mg/dL (8.9-20.6); Bilirubin, Total 0.5 mg/dL (0.2-1.2); Calc. Creatinine Clearance 0 mL/min (70-130); Calcium 8.8 mg/dL (7.8-10.44); Carbon Dioxide 24 mmol/L (22-29); Chloride 105 mmol/L (98-107); Estimated GFR 96; Globulin 2.6 g/dL (2.4-3.5); Glucose 121 mg/dL (70-105); Protein, Total 6.5 g/dL (6.0-8.3); Sodium 141 mmol/L (136-145)
[2021-12-05 20:09] LABS: Bacteria/HPF 2+ HPF (None Seen); Bilirubin Negative (Negative); Blood, Urine 2+ (Negative); Clarity Turbid (Clear); Glucose, Urine (Dipstick) Normal (Negative); Ketone, Urine Negative (Negative); Leukocyte 500 Leu/uL (Negative); Nitrite Negative (Negative); Protein, Urine (Dipstick) Negative (Neg-Trace); Specific Gravity, Urine 1.012 (1.002-1.036); Squamous Epithelial None Seen HPF (0-3); Urobilinogen Normal mg/dL (Less than 2); WBC/HPF Greater than 50 HPF (0-3)
[2021-12-06 15:26] LABS: Chlam.trachomatis by PCR,Urine Not Detected (NotDetected)
== END 2021-12-05 21:40 | disposition home or self-care (01) ==
LOC: ERS 18:19
DX: N39.0 Urinary tract infection, site not specified (principal); I10 Essential (primary) hypertension; F17.210 Nicotine dependence, cigarettes, uncomplicated; Z79.899 Other long term (current) drug therapy
CPT/HCPCS: 36415; 80053; 81003; 81015; 85025; 87077; 87086; 87186; 87491; 87591; 99283

== ENCOUNTER 2022-02-10 07:21 | Emergency (ER) | payer SELFPAY ==
[2022-02-10 08:18] LABS: #Basophils 0.1 thou/uL (0.0-0.2); #Eosinphils 0.3 thou/uL (0.0-0.7); #Lymphocytes 1.9 thou/uL (1.20-3.40); #Monocytes 0.6 thou/uL (0.11-0.59); %Basophils 0.9 % (0.0-1.0); %Eosinophils 4.7 % (0.0-10.0); %Lymphocytes 32.8 % (21.0-51.0); %Monocytes 9.4 % (0.0-10.0); %Neutrophils 52.2 % (42.0-75.0); Hemoglobin 15.5 g/dL (14.0-18.0); Mean Corpuscular HGB CONC 34.1 g/dL (32.0-36.0); Mean Corpuscular Hemoglobin 31.6 pg (27.0-31.0); Mean Corpuscular Volume 92.6 fl (78.0-98.0); Mean Platelet Volume 7.3 fL (7.4-10.4); Platelet Count 253 10x3/uL (130-400); RBC Distribution Width 11.7 % (11.5-14.5); Red Blood Cell (RBC) Count 4.91 mill/uL (4.70-6.10); White Blood Cell (WBC) Count 5.8 10x3/uL (4.8-10.8)
[2022-02-10 08:39] LABS: ALT (SGPT) 15 U/L (8-55); AST (SGOT) 10 U/L (5-34); Alkaline Phosphatase 71 U/L (40-110); Anion Gap 11 mmol/L (10-20); BUN (Urea Nitrogen) 14 mg/dL (8.9-20.6); Bilirubin, Total 0.6 mg/dL (0.2-1.2); Calc. Creatinine Clearance 0 mL/min (70-130); Carbon Dioxide 28 mmol/L (22-29); Chloride 106 mmol/L (98-107); Estimated GFR 97; Globulin 2.5 g/dL (2.4-3.5); Glucose 85 mg/dL (70-105); Lipase 35 U/L (8-78); Potassium 3.9 mmol/L (3.5-5.1); Protein, Total 6.5 g/dL (6.0-8.3); Sodium 141 mmol/L (136-145)
[2022-02-10 09:05] LABS: Bacteria/HPF 4+ HPF (None Seen); Bilirubin Negative (Negative); Blood, Urine Trace (Negative); Clarity Clear (Clear); Glucose, Urine (Dipstick) Normal (Negative); Ketone, Urine Negative (Negative); Leukocyte 250 Leu/uL (Negative); Nitrite Negative (Negative); Protein, Urine (Dipstick) Negative (Neg-Trace); Specific Gravity, Urine 1.016 (1.002-1.036); Squamous Epithelial None Seen HPF (0-3); Urobilinogen Normal mg/dL (Less than 2); WBC/HPF 21-50 HPF (0-3); pH, Urine 6.5 (5.0-9.0)
[2022-02-10] MEDS ORDERED: Iopamidol-370 76% 500 ML 1 ML ONE (15:55)
== END 2022-02-10 18:57 | disposition home or self-care (01) ==
LOC: ERS 07:21
DX: N39.0 Urinary tract infection, site not specified (principal); N21.0 Calculus in bladder
CPT/HCPCS: 36415; 74177; 80053; 81003; 81015; 83690; 85025; 87077; 87086; 87186; Q9967